=== PATIENT | male | born 1955 | race Caucasian/White ===

== ENCOUNTER 2017-03-22 10:57 | Observation (INO) | payer OTHER ==
[2017-03-22] MEDS ORDERED: NS 1,000 ML IV ONE (11:19)
--- NOTE | 2017-03-22 11:32 | CPEKG ---
Heart Rate: 63 RR Interval: 952 P-R Interval: 264 QRSD Interval: 88 QT Interval: 412 QTC Interval: 422 P Clifton: 59 QRS Clifton: -9 T Wave Clifton: 75 EKG Severity - ABNORMAL ECG - EKG Impression: SINUS RHYTHM EKG Impression: ATRIAL PREMATURE COMPLEX EKG Impression: FIRST DEGREE AV BLOCK Electronically Signed By: Ray Villavicencio 22-Mar-2017 13:04:19
[2017-03-22 12:01] LABS: % IMMATURE GRANULYOCYTES 0.4 % (0.0-1.1); ABSOLUTE IMMATURE GRANULOCYTES 0.02 10^3/uL (0.00-0.10); ADD DIFF? NO; ADD MORPH? NO; ADD SCAN? NO; ATYPICAL LYMPHOCYTE FLAG 0 (0-99); FRAGMENT RBC FLAG 0 (0-99); HEMATOCRIT 47.4 % (40.0-51.0); HEMOGLOBIN 16.1 g/dL (13.7-17.5); LEFT SHIFT FLG 0 (0-99); LIPEMIA HEMOLYSIS FLAG 90 (0-99); MEAN CELL HEMOGLOBIN 30.1 pg (27.9-34.1); MEAN CELL VOLUME 88.6 fL (81.5-99.8); PLATELET CLUMPS FLAG 20 (0-99); PLATELET COUNT 209 10^3/uL (150-400); RED BLOOD CELL COUNT 5.35 10^6/uL (4.40-6.38); RED CELL DISTRIBUTION WIDTH 12.6 % (11.5-15.2)
--- NOTE | 2017-03-22 12:07 | PDANEPAE ---
ANE History of Present Illness a flutter ANE Past Medical History Past Medical History: a fib - Cardiovascular History Hx Hypertension: No Hx Arrhythmias: Yes Hx Chest Pain: No Hx Coronary Artery / Peripheral Vascular Disease: No Hx CHF / Valvular Disease: No Hx Palpitations: No - Pulmonary History Hx COPD: No Hx Asthma/Reactive Airway Disease: No Hx Recent Upper Respiratory Infection: No Hx Oxygen in Use at Home: No Hx Sleep Apnea: Yes - Neurologic History Hx Cerebrovascular Accident: No Hx Seizures: No - Renal History Hx Renal Disorders: No - Liver History Hx Hepatic Disorders: No - Neurological & Psychiatric Hx Hx Neurological and Psychiatric Disorders: No - Cancer History Hx Cancer: No ANE Review of Systems Review of systems is: negative Review of Systems: - Exercise capacity Exercise capacity: >=4 METS ANE Patient History - Allergies Allergies/Adverse Reactions: No Known Drug Allergies Allergy (Verified 03/22/17 11:18) - Home Medications Home medications: home medication list seen and reviewed - NPO status NPO Status: no food or drink >8 hours - Anes Hx Anes Hx: no prior problems - Smoking Hx Smoking Status: Never smoked - Alcohol Use Alcohol Use: Occasionally (3/wk) - Family Anes Hx Family Anes Hx: none ANE Labs/Vital Signs - Labs Result Diagrams: 03/22/17 11:45 03/22/17 11:45 - Vital Signs Vital Signs: reviewed preoperatively; see RN documention for details Height: 182.88 cm Weight: 88.451 kg ANE Physical Exam - Airway Neck exam: FROM Mallampati Score: Class 2 - Pulmonary Pulmonary: no respiratory distress - Cardiovascular Cardiovascular: irregularly irregular - ASA Status ASA Status: III ANE Anesthesia Plan Anesthesia Plan: general endotracheal anesthesia
[2017-03-22] MEDS ORDERED: MIDAZOLAM 2 MG/2 ML VIAL IVP ONE (12:12)
[2017-03-22 12:14] LABS: ANION GAP 15 mEq/L (8-16); CALCIUM 9.8 mg/dL (8.5-10.4); CARBON DIOXIDE 22 mEq/l (22-31); CHLORIDE 104 mEq/L (97-110); CREATININE 0.8 mg/dL (0.7-1.3); GLOMERULAR FILTRATION RATE > 60; GLUCOSE 136 mg/dL (70-100); MAGNESIUM 1.8 mg/dL (1.6-2.3); POTASSIUM 4.9 mEq/L (3.5-5.2); SODIUM 141 mEq/L (134-144)
[2017-03-22 12:16] LABS: INR 1.02 (0.83-1.16); PROTIME(PATIENT) 13.3 SEC (12.0-15.0)
[2017-03-22 12:17] LABS: APTT 35.2 SEC (23.0-38.0)
[2017-03-22] MEDS ORDERED: LIDOCAINE 1% 300 MG/30 ML SDV ONE (12:48)
[2017-03-22] MEDS ORDERED: HEPARIN 10,000 UNIT/10 ML MDV ONE (12:48)
[2017-03-22] MEDS ORDERED: BUPIVACAINE 0.5% 30 ML SDV ONE (12:49)
[2017-03-22] MEDS ORDERED: ISOPROTERENOL HCL/D5W 0.2 MG/50 ML BAG IV ONE (12:49)
--- NOTE | 2017-03-22 13:11 | PDHPUP ---
History & Physical Update H&P update statement: This history and physical update is based on an assessment of the patient which was completed after admission or registration (within 24 hours), but prior to the surgery/procedure. H&P update: H&P reviewed & patient examined, no change in patient's condition since H&P completed
[2017-03-22] MEDS ORDERED: ROCURONIUM 100 MG/10 ML VIAL ONE (13:39)
[2017-03-22] MEDS ORDERED: PROPOFOL 200 MG/20 ML VIAL ONE (13:39)
[2017-03-22] MEDS ORDERED: fentaNYL 100 MCG/2 ML INJ ONE (13:39)
[2017-03-22] MEDS ORDERED: SUGAMMADEX SODIUM 200 MG/2 ML VIAL IVP ONE (15:44)
[2017-03-22] MEDS ORDERED: ONDANSETRON 4 MG/2 ML VIAL ONE (15:44)
[2017-03-22] MEDS ORDERED: PROTAMINE SULFATE 50 MG/5 ML VIAL IVP ONE (15:51)
[2017-03-22] MEDS ORDERED: ACETAMINOPHEN 325 MG TAB PO PRN (15:54)
[2017-03-22] MEDS ORDERED: ONDANSETRON 4 MG/2 ML VIAL IVP PRN ×2 (15:54→16:14)
[2017-03-22] MEDS ORDERED: ATROPINE SULFATE 1 MG/10 ML SYR ONE (16:07)
--- NOTE | 2017-03-22 16:12 | EPPROC ---
Electrophysiology Procedure Note: ELECTROPHYSIOLOGIC STUDY AND CATHETER MEDIATED ABLATION FOR SUBEUSTACHIAN ISTHMUS DEPENDENT COUNTERCLOCKWISE ATRIAL FLUTTER: INDICATION: Recurrent atrial flutter Also has atrial fibrillation but prefers to treat it with antiarrhythmics prior to considering ablation for atrial fibrillation. PROCEDURES PERFORMED: 30888-30 EP evaluation with RA/RV/LA pace/record, with arrhythmia induction 54613-61 EP evaluation with RA/RV pace record, insert/reposition catheter, with arrhythmia induction 04167 SVT ablation 38794 3D mapping Fluoroscopy Catheters & Anesthesia: The patient arrived in the Electrophysiology Laboratory in the fasting state. The right clavicular region, right groin, and left groin area were prepped and draped in the usual sterile manner. Anesthesiologist administered general anesthesia. Appropriate non-invasive blood pressure, pulse oximetry and end- tidal CO2 monitoring was established. All catheters were placed percutaneously using the modified Seldinger technique , and advanced into position under fluoroscopic guidance. One #7 Jordanian deflectable octapolar electrode catheter was advanced to the His-bundle position via the left femoral vein (2mm spacing; except the proximal ring which was 25cm from the tip used for unipolar recordings). This was later placed into the coronary sinus. One # 7 Jordanian Halo catheter was inserted through the right femoral vein and was placed at the tricuspid annulus. Heparin was administered to keep ACT > 250 seconds. Programmed stimulation was performed from the right atrium, coronary sinus ( left atrium) and right ventricle. Parahisian pacing demonstrated all retrograde conduction over the AV node. On arrival to the Electrophysiology Laboratory the patient was in sinus rhythm. Atrial flutter has been seen previously. In preparation for ablation of typical atrial flutter, a high-resolution 3D (3 dimensional) Carto electroanatomical map of the sub-Eustachian isthmus and right atrium was obtained during pacing of the posterolateral coronary sinus. For ablation of typical atrial flutter, one #8.5 Agilis sheath was placed in the right atrium. A #8 Jordanian deflectable quadrapolar electrode catheter (2mm- 5mm-2mm spacing) with 3.5 mm irrigated tip electrode and location sensor for the Luminoso mapping system was inserted in the long sheath and advanced to the right atrium. Radiofrequency applications were applied between the tricuspid annulus at 0630 oclock as seen in the PERSIAN view and the inferior vena cava. This achieved conduction block across the isthmus. Patient needed ONEAL + CV for AFIB during the procedure. Following ablation of the atrial flutter, programmed atrial stimulation was performed in the baseline state and during infusion of isoproterenol 2 mcg/min. No atrial arrhythmias were inducible post ablation. Post ablation, a high-resolution electroanatomical map of the sub-Eustachian isthmus was obtained during pacing of the posterolateral coronary sinus. This confirmed conduction block across the sub-Eustachian isthmus. Bidirectional block was also confirmed by pacing. The catheters were removed. Long sheath was changed to short 9Fr sheath. Protamine was administered. The patient was transferred to the cardiovascular holding area in stable condition. Vascular access sheaths were removed in the holding area. There were no apparent complications. CONCLUSIONS: 1. Cavotricuspid isthmus dependent counterclockwise atrial flutter. 2. Successful catheter mediated ablation of cavotricuspid isthmus achieving bi -directional conduction block across cavotricuspid isthmus. 3. Atrial fibrillation, not targeted for ablation. 4. No apparent complications. Patient Problems: Problems Problem Status Onset Atrial fibrillation and flutter Acute
[2017-03-22] MEDS ORDERED: PROMETHAZINE HCL 25 MG/ML INJ IVP PRN (16:14)
[2017-03-22] MEDS ORDERED: HYDROmorphONE/DILAUDID 1 MG/ML INJ IVP PRN (16:14)
[2017-03-22] MEDS ORDERED: fentaNYL 100 MCG/2 ML INJ IVP PRN (16:14)
[2017-03-22] MEDS ORDERED: NALOXONE HCL 0.4 MG/ML INJ IVP PRN (16:14)
[2017-03-22] MEDS ORDERED: MEPERIDINE 25 MG/ML SYR IVP PRN (16:14)
[2017-03-22] MEDS ORDERED: ALBUTEROL 3 ML DEYVIAL IH PRN (16:14)
[2017-03-22 16:50] LABS: ANION GAP 9 mEq/L (8-16); CALCIUM 8.5 mg/dL (8.5-10.4); CARBON DIOXIDE 23 mEq/l (22-31); CHLORIDE 106 mEq/L (97-110); CREATININE 0.9 mg/dL (0.7-1.3); GLOMERULAR FILTRATION RATE > 60; GLUCOSE 135 mg/dL (70-100); MAGNESIUM 1.7 mg/dL (1.6-2.3); POTASSIUM 4.7 mEq/L (3.5-5.2); SODIUM 138 mEq/L (134-144)
--- NOTE | 2017-03-22 17:01 | CPEKG ---
Heart Rate: 68 RR Interval: 882 P-R Interval: 252 QRSD Interval: 90 QT Interval: 412 QTC Interval: 439 P Mansfield: 59 QRS Mansfield: 13 T Wave Mansfield: 75 EKG Severity - ABNORMAL ECG - EKG Impression: SINUS RHYTHM EKG Impression: FIRST DEGREE AV BLOCK Electronically Signed By: Ray Villavicencio 23-Mar-2017 08:57:38
[2017-03-22] MEDS: PROPAFENONE HCL SR 225 MG CAP PO SCH ×2 (17:13→20:00)
[2017-03-22] MEDS ORDERED: ZOLPIDEM TARTRATE 5 MG TAB PO PRN (17:49)
[2017-03-22] MEDS ORDERED: LIDOCAINE/PRILOCAINE 1 EACH CRTUBE TP PRN (17:51)
[2017-03-22] MEDS: metFORMIN HCL 500 MG TAB PO SCH (19:57)
[2017-03-22] MEDS ORDERED: PRAVASTATIN SODIUM 10 MG TAB PO SCH (21:00)
[2017-03-23 03:58] VITALS: RESP 18
[2017-03-23 04:24] LABS: % IMMATURE GRANULYOCYTES 0.4 % (0.0-1.1); ABSOLUTE IMMATURE GRANULOCYTES 0.04 10^3/uL (0.00-0.10); ADD DIFF? NO; ADD MORPH? NO; ADD SCAN? NO; ATYPICAL LYMPHOCYTE FLAG 0 (0-99); FRAGMENT RBC FLAG 0 (0-99); HEMATOCRIT 41.7 % (40.0-51.0); HEMOGLOBIN 14.3 g/dL (13.7-17.5); LEFT SHIFT FLG 10 (0-99); LIPEMIA HEMOLYSIS FLAG 90 (0-99); MEAN CELL HEMOGLOBIN 30.4 pg (27.9-34.1); MEAN CELL HEMOGLOBIN CONCENTR. 34.3 g/dL (32.4-36.7); MEAN CELL VOLUME 88.7 fL (81.5-99.8); MEAN PLATELET VOLUME 10.1 fL (8.7-11.7); PLATELET CLUMPS FLAG 0 (0-99); PLATELET COUNT 202 10^3/uL (150-400); RED CELL DISTRIBUTION WIDTH 12.4 % (11.5-15.2)
[2017-03-23 04:34] LABS: INR 1.12 (0.83-1.16); PROTIME(PATIENT) 14.3 SEC (12.0-15.0)
[2017-03-23 05:06] LABS: ANION GAP 10 mEq/L (8-16); CALCIUM 9.5 mg/dL (8.5-10.4); CARBON DIOXIDE 21 mEq/l (22-31); CHLORIDE 104 mEq/L (97-110); CREATININE 0.9 mg/dL (0.7-1.3); GLOMERULAR FILTRATION RATE > 60; GLUCOSE 154 mg/dL (70-100); POTASSIUM 4.6 mEq/L (3.5-5.2); SODIUM 135 mEq/L (134-144)
[2017-03-23 05:17] LABS: CREATINE KINASE-MB FRACTION 2.09 ng/mL (0.00-3.19); TROPONIN I 0.438 ng/mL (0.000-0.034)
[2017-03-23] MEDS ORDERED: DILTIAZEM CD 120 MG CAP PO SCH ×2 (06:15→09:00)
[2017-03-23] MEDS: PROPAFENONE HCL SR 225 MG CAP PO SCH (06:24)
[2017-03-23 08:06] VITALS: BP 131/86; PULSE 72; TEMP 97.9; O2SAT 94
--- NOTE | 2017-03-23 08:55 | ECHO ---
[email or web address] [place] [id number] Main: [phone] Fax: Transesophageal Echocardiography Name: PRECIOUS ZENDEJAS MR#: [id number] Study Date: 03/22/2017 Study Time: 02:56 PM Date of : 1955 Age: 61 year(s) Height: ( ) Weight: ( ) BSA: Gender: Male Examination: ONEAL Indication: EP ONEAL pre-cardioversion Image Quality: Contrast: Requested by: Ray Villavicencio Heart Rate: Rhythm: BP: / Procedure Staff Customer Technical Services Manager: Wagner Hector Reading Physician: Ray Villavicencio ONEAL Exam Details Patient Consent: Risks, alternatives of procedure explained to patient, informed consent obtained. Measurements: Chambers Valvular Assessment AV/MV Valvular Assessment TV/PV Normal Normal Normal Name Value Range Name Value Range Name Value Range Additional Measurements: Findings: Left Ventricle: Normal size left ventricle. No LV hypertrophy. Normal global systolic LV function. Normal global systolic LV function. Normal diastolic LV function. Right Ventricle: Normal size right ventricle. Left Atrium: Left Atrium: The left atrium is normal in size. Right Atrium: The right atrium is normal in size. Mitral Valve: The mitral valve is normal in appearance and function. Moderate mitral valve regurgitation is present. Aortic Valve: Patient: PRECIOUS ZENDEJAS Study Date: 03/22/2017 Page 1 of 2 02:56 PM The aortic valve is normal in appearance and function. Tricuspid Valve: The tricuspid valve is normal in appearance and function. Pulmonic Valve: The pulmonic valve is normal in appearance and function. Aorta: The aorta is normal. Pericardium: No pericardial effusion. l1n (No Signature Object) Patient: PRECIOUS ZENDEJAS Study Date: 03/22/2017 Page 2 of 2 02:56 PM [id number]
[2017-03-23] MEDS ORDERED: FLU VACC QS 2017-18 (3YR+)/PF 0.5 ML SYR (FLUARIX QUAD) IM ONE (09:00)
[2017-03-23] MEDS ORDERED: PNEUMOCOCCAL 0.5ML VACCINE VIAL IM ONE (09:00)
[2017-03-23] MEDS ORDERED: ASPIRIN 81 MG CHEWABLE TAB PO SCH (09:00)
[2017-03-23] MEDS ORDERED: OMEGA-3 FATTY ACIDS 1,000 MG CAP PO SCH (09:00)
--- NOTE | 2017-03-23 09:06 | CPEKG ---
Heart Rate: 79 RR Interval: 759 P-R Interval: 260 QRSD Interval: 82 QT Interval: 372 QTC Interval: 427 P [place]el Hurst: 52 QRS [place]: -3 T Wave [place]: 78 EKG Severity - ABNORMAL ECG - EKG Impression: SINUS RHYTHM EKG Impression: FIRST DEGREE AV BLOCK Electronically Signed By: Ray Villavicencio 23-Mar-2017 10:51:59
[2017-03-23] MEDS: metFORMIN HCL 500 MG TAB PO SCH (09:28)
[2017-03-23] MEDS: APIXABAN 5 MG TAB PO SCH ×2 (09:29→09:50)
--- NOTE | 2017-03-23 10:14 | ECHO ---
[email or web address] [address] [address] Main: [phone] Fax: Transthoracic Echocardiogram Name: PRECIOUS ZENDEJAS MR#: [id number] Study Date: 03/23/2017 Study Time: 08:30 AM Date of : 1955 Age: 61 year(s) Height: 182.9 cm (72 in.) Weight: 88.45 kg (195 lb.) BSA: 2.11 m2 Gender: Male Examination: Echo Indication: post ep Image Quality: Adequate Contrast: Requested by: Ray Villavicencio BP: 131 mmHg/86 mmHg Heart Rate: Rhythm: Normal sinus rhythm Indication: post ep Procedure Staff Taping Foreman: Dorothea Marshall Reading Physician: Reading Physician: Edwige Mcgowan Conclusions: Normal size left ventricle. Normal global systolic LV function (EF 67 %). All scored wall segments are normal. The right atrium is mildly dilated. Mild mitral valve regurgitation is present. Mild tricuspid regurgitation is present. The pulmonary artery pressure is normal. No pericardial effusion. Measurements: Chambers Valvular Assessment AV/MV Valvular Assessment TV/PV Normal Normal Normal Name Value Range Name Value Range Name Value Range Ao Carmella (MM): 3.6 cm (2.2 cm-3.7 AV Vmax: 1.30 m/s (1 m/s-1.7 TR Vmax: 2.56 mm/s ( - ) cm) m/s) TR PGmax: 26 mmHg ( - ) IVSd (2D): 1.1 cm (0.6 cm-1.1 AV maxP mmHg ( - ) syst. PAP: 36 mmHg ( - ) cm) LVOT Vmax: 0.96 m/s (0.7 m/s-1.1 LVDd (2D): 4.1 cm (4.2 cm-5.9 m/s) cm) MV E Vmax: 0.66 cm/s ( - ) LVDs (2D): 2.5 cm (2.1 cm-4 MV A Vmax: 1.08 cm/s ( - ) cm) MV E/A: 0.61 ( - ) LVPWd (2D): 1.0 cm (0.6 cm-1 cm) LVEF (BP): 67 % (>=55 %) RVDd(2D): 3.8 cm (1.9 cm-3.8 cmmm) Continued Measurements: Chambers Valvular Assessment AV/MV Valvular Assessment TV/PV Name Value Name Value Name Value Patient: PRECIOUS ZENDEJAS Study Date: 03/23/2017 Page 1 of 2 08:30 AM LA Area: 22.2 cm2 MV DecTime: 144 CVP (est.): 10 LA Volume: 62 ml MV E' Septal: 0.08 m/s LA Volume Index: 29.4 ml/m2 MV E/E' Septal: 8.50 RA Area: 20.0 cm2 MV E/E' Lateral: 5.70 Additional Vessels Name Value Ao Ascendin.1 cm Findings: Left Ventricle: Normal size left ventricle. No LV hypertrophy. Normal global systolic LV function (EF 67 %). All scored wall segments are normal. Normal diastolic LV function. Right Ventricle: Normal size right ventricle. Left Atrium: The left atrium is normal in size. Right Atrium: The right atrium is mildly dilated. Mitral Valve: The mitral valve is normal in appearance and function. Mild mitral valve regurgitation is present. Aortic Valve: The aortic valve is normal in appearance and function. Tricuspid Valve: The tricuspid valve is normal in appearance and function. Mild tricuspid regurgitation is present. The pulmonary artery pressure is normal. Pulmonic Valve: The pulmonic valve is normal in appearance and function. Aorta: The aorta is normal. IVC: The IVC is dilated. Pericardium: No pericardial effusion. (No Signature Object) Wall Motion Scores -1 - Not Scored, 0 - Unknown, 1 - Normal or hyperkinesia, 2 - Hypokinesia, 3 - Akinesia, 4 - Dyskinesia, 5 - Aneurysm Patient: PRECIOUS ZENDEAJS Study Date: 03/23/2017 Page 2 of 2 08:30 AM [id number]
--- NOTE | 2017-03-23 10:51 | ASMTCMCOM ---
CM Note CM Note Notes: Chart reviewed.Patient to dc home. No needs identified. CM available to help should needs arise. Date Signed: 03/23/2017 10:50 AM Electronically Signed By:Aury Ramirez RN
--- NOTE | 2017-03-23 14:51 | ASDISCHSUM ---
Discharge Information Plan Status:Home with No Needs Medically Cleared to Leave:03/23/2017 Discharge Date:03/23/2017 12:02 PM CM D/C Disposition:Home, Routine, Self-Care ADT D/C Disposition:Home, Routine, Self-Care Projected Discharge Date:03/23/2017 12:02 PM Transportation at D/C:Family Discharge Delay Reason: Follow-Up Date:03/23/2017 12:02 PM Discharge Slot: Final Diagnosis: Placement Information Patient Contact Information Contact Name:YOSELIN Relationship: Address:[address] City:[place] Alternate Phone: [facility]/Zip Code:[place] [address] Email: Financial Information Financial Class:[facility] Primary Plan Desc:[facility] Primary Plan Number:[id number] Secondary Plan Desc: Secondary Plan Number: Assessment Information [facility] CM Progress Note CM Note CM Note Notes: Chart reviewed.Patient to dc home. No needs identified. CM available to help should needs arise. Date Signed: 03/23/2017 10:50 AM Electronically Signed By:Aury Ramirez RN Intervention Information
--- NOTE | 2017-03-24 03:37 | GDS ---
[f rep st] DISCHARGE SUMMARY DISCHARGE DIAGNOSES: 1. Persistent atrial flutter. 2. Paroxysmal atrial fibrillation. BRIEF HISTORY: Patient has a history of both atrial flutter and atrial fibrillation. A 48-hour Holter monitor demonstrated persistent atrial flutter despite propafenone and diltiazem. Patient had symptoms of fatigue and palpitations. He opted to try for just atrial flutter ablation and hold off on ablation for atrial fibrillation. HOSPITAL COURSE: Dr. Villavicencio performed a successful catheter ablation of the cavotricuspid isthmus achieving bidirectional conduction block across the cavotricuspid isthmus. ONEAL cardioversion was done for atrial fibrillation that occurred during the procedure. Post ablation, patient had no inducible arrhythmias. During the night on telemetry, a few brief episodes of atrial fibrillation were noted, and then one longer one this morning lasting just over an hour. Patient denied any symptoms of this. He denies any chest pain, pressure, tightness, shortness of breath. He has not had any pain at his groin sites or bleeding. He denies any pain at his defibrillation sites. TESTING DONE: 12-lead EKG demonstrates sinus rhythm with first-degree AV block. Echocardiogram demonstrates normal LV function with an ejection fraction of 67% and no pericardial effusion. LABORATORY DATA: WBC is 9.96, hemoglobin is 14.3, hematocrit is 41.7, platelets are 202,000. PT is 14.3. INR 1.12. Sodium 135, potassium 4.6, chloride 104, bicarb 21, BUN 16, creatinine 0.9, glucose 154. CK is 60. CK-MB is 2.09. Troponin is 0.438. PHYSICAL EXAMINATION: VITAL SIGNS: Blood pressure is 131/86, pulse is 72, respirations 18, temperature 36.6, O2 saturation on room air is 94%. GENERAL: He is alert and oriented, sitting up in bed, in no acute distress. CHEST: Front and back very small amount of redness where the defibrillation pads were. CARDIAC: Regular rate and rhythm without murmur, rub, or gallop. LUNGS: Clear to auscultation. ABDOMEN: Soft and nontender. Groin sites are without bleeding or hematoma. EXTREMITIES: Warm. No discoloration. Bilateral +2 pedal pulses. DISCHARGE INSTRUCTIONS: Post ablation activity restrictions were reviewed verbally with the patient. He was also given written instructions. He is going to return to work on , and he understands to get up and walk every 45 minutes. DISCHARGE MEDICATIONS: Please see discharge home medication reconciliation. Of note, he is continuing with the propafenone, diltiazem, and Eliquis was restarted this morning. FOLLOWUP: He has a followup with Dr. Villavicencio on April 07 at 3:45. /[id number]/MODL MTDD
== END 2017-03-23 12:02 | disposition home or self-care (01) ==
LOC: FCATH 10:57 → F2W 15:54
PROVIDERS: ADMIT Internal Medicine Cardiovascular Disease; ATTEND Internal Medicine Cardiovascular Disease
PROC: 02583ZZ Destruction of Conduction Mechanism, Percutaneous Approach (ICD-10-PCS; principal; 2017-03-22)
PROC: 02K83ZZ Map Conduction Mechanism, Percutaneous Approach (ICD-10-PCS; principal; 2017-03-22)
PROC: B245ZZ4 Ultrasonography of Left Heart, Transesophageal (ICD-10-PCS; principal; 2017-03-22)
PROC: 4A023FZ Measurement of Cardiac Rhythm, Percutaneous Approach (ICD-10-PCS; principal; 2017-03-22)
PROC: 5A2204Z Restoration of Cardiac Rhythm, Single (ICD-10-PCS; principal; 2017-03-22)
PROC: 5A1213Z Performance of Cardiac Pacing, Intermittent (ICD-10-PCS; principal; 2017-03-22)
DX: I48.0 Paroxysmal atrial fibrillation (principal); I48.92 Unspecified atrial flutter; I44.1 Atrioventricular block, second degree; G47.30 Sleep apnea, unspecified; Z79.01 Long term (current) use of anticoagulants; Z23 Encounter for immunization
CPT/HCPCS: 90471; 93005; 93306; 93312; 93613; 93621; 93653; G0378; C1731; C1732; C1766; G0008; G0009; J0461; J1644; J2250; J2405; J2704; J2720; J3010

== ENCOUNTER → 2018-05-14 | Outpatient (CLI) | payer OTHER | LOC: FIMAGING 11:27 | PROVIDERS: ATTEND Orthopaedic Surgery | DX: M17.11 Unilateral primary osteoarthritis, right knee (principal) ==